=== PATIENT | male | born 1935 | race Caucasian/White ===

== ENCOUNTER 2016-10-22 12:04 | Outpatient (CLI) | payer MEDICARE, OTHER | END 2016-10-22 12:05 | disposition critical access hospital (66) | LOC: EMS 12:04 | PROVIDERS: ATTEND Surgery | DX: R55 Syncope and collapse (principal) | CPT/HCPCS: A0425; A0427 ==

== ENCOUNTER 2016-10-22 12:25 | Observation (INO) | payer MEDICARE, OTHER ==
[2016-10-22 13:02] LABS: BASOPHILS % (AUTO) 0.5 %; EOSINOPHILS % (AUTO) 0.2 %; HCT - HEMATOCRIT 37.1 % (42.0-52.0); HGB - HEMOGLOBIN 12.6 g/dL (14.0-18.0); LYMPHOCYTES # (AUTO) 0.6 10^3/uL (1.5-3.5); MEAN CORPUSCULAR HEMOGLOBIN 31.7 pg (27.0-31.0); MEAN CORPUSCULAR VOLUME 93.2 fL (80.0-94.0); MEAN PLATELET VOLUME 7.1 fL (7.4-11.4); MONOCYTES # (AUTO) 0.6 10^3/uL (0.0-1.0); MONOCYTES % (AUTO) 9.6 %; NEUTROPHILS # (AUTO) 4.8 10^3/uL (1.5-6.6); NEUTROPHILS % (AUTO) 79.7 %; RED BLOOD COUNT 3.99 10^6/uL (4.70-6.10); RED CELL DISTRIBUTION WIDTH 13.6 % (12.0-15.0); UNCORRECTED WHITE BLOOD COUNT 5.9 x10^3/uL; WHITE BLOOD COUNT 5.9 x10^3/uL (4.8-10.8)
--- NOTE | 2016-10-22 13:03 | ED Physician Documentation ---
PD HPI SYNCOPE - Stated complaint Stated Complaint: SYNCOPAL - Chief complaint Chief Complaint: Neuro - History obtained from History obtained from: Patient, Family - History of Present Illness Witnessed: Witnessed Timing - onset: Today Duration: Seconds Preceding symptoms: Vision changes, Diaphoresis, Light headed Associated symptoms: Diaphoresis Contributing factors: Decreased PO intake, Other (diarrhea for 4 days and increased blood sugars) Injury occurred: None Treatment [employer]: Fluids Similar symptoms before: Has not had sx before Recently seen: Not recently seen - Additional information Additional information: 80-year-old male from [place] who [facility] has been well this summer since June and about 4 days ago he developed some diarrhea several times per day with watery stool. His blood sugars have been running high as well. He usually runs about 100 and he has had numbers over 200 in the past 4 days. Today he went out to talk to his neighbor's when he came back into the house his noted him to be pale and diaphoretic and not acting appropriately. The patient is transported to the hospital by paramedics. Review of Systems Constitutional: reports: Fatigue, Sweats. denies: Fever, Chills, Myalgias Eyes: denies: Decreased vision Ears: denies: Ear pain Nose: denies: Rhinorrhea / runny nose, Congestion Throat: denies: Sore throat Cardiac: denies: Chest pain / pressure, Palpitations Respiratory: denies: Dyspnea, Cough GI: reports: Diarrhea. denies: Abdominal Pain, Nausea, Vomiting, Constipation : reports: Frequency. denies: Dysuria Skin: denies: Rash Musculoskeletal: denies: Neck pain, Back pain, Extremity pain Neurologic: reports: Generalized weakness. denies: Focal weakness, Numbness PD PAST MEDICAL HISTORY - Past Medical History Past Medical History: Yes Cardiovascular: [place] Endocrine/Autoimmune: Type 2 diabetes - Past Surgical History Past Surgical History: Yes General: Appendectomy Cardiovascular: CABG HEENT: Tonsil/Adenoidectomy - Present Medications Home Medications: Ambulatory Orders Medication Instructions Recorded Confirmed Aspirin 1 tab PO DAILY 09/23/14 10/22/16 Carvedilol 1 tab PO DAILY 09/23/14 10/22/16 Insulin Glargine,Hum.rec.anlog 15 unit DAILY 09/23/14 09/23/14 [Lantus] Lisinopril 1 tab DAILY 09/23/14 10/22/16 Simvastatin 0.5 tab PO QPM 09/23/14 10/22/16 glipiZIDE [Glucotrol] 5 mg PO DAILY 09/23/14 10/22/16 metFORMIN [Glucophage] 1,000 mg PO BID 09/23/14 10/22/16 Nitroglycerin 10/22/16 - Allergies Allergies/Adverse Reactions: Allergies Allergy/AdvReac Type Severity Reaction Status Date / Time No Known Drug Allergies Allergy Verified 09/23/14 09:54 - Social History Does the pt smoke?: No Smoking Status: Never smoker Does the pt drink ETOH?: Yes Does the pt have substance abuse?: No PD ED PE NORMAL - Vitals Vital signs reviewed: Yes (Normal) - General General: Alert and oriented X 3, No acute distress, Well developed/nourished - HEENT HEENT: Atraumatic, PERRL, EOMI - Neck Neck: Supple, no meningeal sign, No bony TTP - Cardiac Cardiac: RRR, Other (2 out of 6 holosystolic murmur at the left sternal border without radiation into the axilla.) - Respiratory Respiratory: No respiratory distress, Clear bilaterally - Abdomen Abdomen: Soft, Non tender - Back Back: No CVA TTP, No spinal TTP - Derm Derm: Normal color, Warm and dry, No rash - Extremities Extremities: No deformity, No edema - Neuro Neuro: Alert and oriented X 3, irrigation equipment remover 2-12 intact, No motor deficit, No sensory deficit, Normal speech - Psych Psych: Normal mood, Normal affect Results - Vitals Vitals: Vital Signs - 24 hr 10/22/16 10/22/16 12:30 15:14 Temperature 36.8 C 36.7 C Heart Rate 67 71 Respiratory 16 15 Rate Blood Pressure 117/74 125/58 L O2 Saturation 96 96 Oxygen O2 Source Room air - EKG (time done) 1246 Rate: Rate (enter#) (60) Rhythm: NSR Intervals: Prolonged [place], RBBB Ischemia: Normal ST segments, Q waves Compare to prior EKG: Old EKG unavailable Computer interpretation: Agree with computer - Labs Labs: Laboratory Tests 10/22/16 10/22/16 10/22/16 12:54 12:54 12:54 WBC 5.9 RBC 3.99 L Hgb 12.6 L Hct 37.1 L MCV 93.2 MCH 31.7 H MCHC 34.0 RDW 13.6 Plt Count 129 L MPV 7.1 L Neut # 4.8 Lymph # 0.6 L [place] # 0.6 Eos # 0.0 Baso # 0.0 Absolute Nucleated RBC 0.00 Nucleated RBCs 0.0 Sodium 130 L Potassium 4.0 Chloride 101 Carbon Dioxide 22 Anion Gap 7.0 BUN 31 H Creatinine 1.5 H Estimated GFR (MDRD) 45 L Glucose 271 H Calcium 8.4 L Total Bilirubin 1.1 H AST 40 ALT 28 Alkaline Phosphatase 44 Troponin I 0.08 Total Protein 6.5 L Albumin 3.4 Globulin 3.1 Albumin/Globulin Ratio 1.1 Lipase 44 Urine Color Urine Clarity Urine pH Ur Specific [place] Urine Protein Urine Glucose (UA) Urine Ketones Urine Occult Blood Urine Nitrite Urine Bilirubin Urine Urobilinogen Ur Leukocyte Esterase Urine RBC Urine WBC Ur Squamous Epith Cells Amorphous Sediment Urine Bacteria Urine Casts Ur Microscopic Review Urine Culture Comments 10/22/16 10/22/16 15:03 15:15 WBC RBC Hgb Hct MCV MCH MCHC RDW Plt Count MPV Neut # Lymph # [place] # Eos # Baso # Absolute Nucleated RBC Nucleated RBCs Sodium Potassium Chloride Carbon Dioxide Anion Gap BUN Creatinine Estimated GFR (MDRD) Glucose Calcium Total Bilirubin AST ALT Alkaline Phosphatase Troponin I 0.09 Total Protein Albumin Globulin Albumin/Globulin Ratio Lipase Urine Color DARK YELLOW Urine Clarity HAZY Urine pH 6.0 Ur Specific [place] 1.025 Urine Protein 30 H Urine Glucose (UA) NEGATIVE Urine Ketones NEGATIVE Urine Occult Blood MODERATE H Urine Nitrite NEGATIVE Urine Bilirubin NEGATIVE Urine Urobilinogen 0.2 (NORMAL) Ur Leukocyte Esterase NEGATIVE Urine RBC 0-5 Urine WBC 0-3 Ur Squamous Epith Cells FEW Squamous Amorphous Sediment Rare Urine Bacteria Few Urine Casts 11-25 Hyaline Casts Ur Microscopic Review INDICATED Urine Culture Comments NOT INDICATED Procedures - IVC sono (time) 1300 Bedside IVC sono: IVC measures (cm) (0.83), Dehydration (after 500ml in) PD MEDICAL DECISION MAKING - ED course Complexity details: reviewed old records, reviewed results, re-evaluated patient , considered differential, d/w patient, d/w family ED course: 80-year-old diabetic male with a history of coronary artery disease has been sick for 4 days with diarrhea and he has had some elevated blood sugars. This morning he had a near syncopal episode and was found to be dehydrated on interrogation of the IVC. In addition on examination he does appear to have aortic stenosis. He does not have echo done in this state. Departure - Departure Disposition: ED Place in Observation Clinical Impression: Vasovagal near-syncope, Dizziness, Dehydration
[2016-10-22 13:15] LABS: ALBUMIN/GLOBULIN RATIO 1.1 (1.0-2.2); BILIRUBIN,TOTAL 1.1 mg/dL (0.2-1.0); CALCIUM 8.4 mg/dL (8.5-10.3); CREATININE 1.5 mg/dL (0.6-1.2); TOTAL PROTEIN 6.5 g/dL (6.7-8.2)
[2016-10-22 15:32] LABS: BILIRUBIN,URINE NEGATIVE (NEGATIVE)
[2016-10-22 15:36] LABS: UA w/ MICROSCOPIC CHARGE YES
[2016-10-22 16:14] LABS: UR CULTURE IF IND NOT INDICATED; WBC,URINE 0-3 /HPF (0-3)
[2016-10-22] MEDS ORDERED: SODIUM CHLORIDE FLUSH 0.9% 10 ML SYRINGE IVP PRN ×2 (16:32→17:15)
[2016-10-22] MEDS ORDERED: ACETAMINOPHEN 325 MG TABLET PO PRN ×2 (16:32→17:15)
[2016-10-22] MEDS ORDERED: ONDANSETRON 4 MG/2 ML VIAL IVP PRN ×2 (16:32→17:15)
[2016-10-22] MEDS ORDERED: oxyCODONE 5 MG TABLET PO PRN ×2 (16:32→17:15)
[2016-10-22] MEDS ORDERED: PROCHLORPERAZINE 10 MG/2 ML VIAL IVP PRN ×2 (16:32→17:15)
[2016-10-22] MEDS ORDERED: SODIUM CHLORIDE 0.9% 1,000 ML IV SCH (17:00)
[2016-10-22] MEDS ORDERED: INSULIN ASPART 300 UNIT/3 ML PEN SUBQ SCH (17:00)
[2016-10-22 17:11] LABS: HEMOGLOBIN A1C 0.83 g/dL
[2016-10-22] MEDS: INSULIN ASPART 300 UNIT/3 ML PEN SUBQ SCH ×2 (18:10→21:59)
--- NOTE | 2016-10-22 18:48 | HISTORY & PHYSICAL EXAMINATION ---
Chief Complaint - Chief Complaint Chief Complaint: Near syncope History of Present Illness - Admitted From Admitted From:: Emergency department - History Obtained From Records Reviewed: Yes History obtained from: Patient Exam Limitations: None - History of Present Illness HPI Comment/Other: Patient is a 80-year-old gentleman with a past medical history significant for hypertension, diabetes, hyperlipidemia and coronary artery disease status post CABG who presented to the emergency department with a complaint of presyncope. The patient states that he was in his normal state of health until about 4 days ago when he began developing diarrhea. He states he has been going to the bathroom 5-6 times a day with watery stools. He states he did not seek any medical help for the diarrhea as he states he has had diarrhea in the past but usually only lasts for about a day. He states that today the diarrhea was getting better as he has only had one episode over the course of the day. He denies any abdominal pain or cramping. He denies any nausea or vomiting. He denies any recent fevers or chills. He denies having had any sick contacts. He states the reason he was brought into the emergency department today is because his noticed that he had a presyncopal episode. The patient states that he was outside talking to his neighbor when he began feeling lightheaded so he came inside and sat down on the couch. The patient states that he did not have any chest pain, shortness of air or palpitations when he had this dizziness. He states that when he was sitting on the couch his called out to him but he did not answer. His states that he seemed as though he was pale and clammy. The patient did eventually start answering questions but the became concerned and called 911. The patient was brought into the emergency department by EMS. The patient otherwise denies any headaches, blurred vision, runny nose, sore throat, nasal congestion, cough, orthopnea, PND, increased lower extremity swelling, joint pains, muscle aches, recent unintentional weight loss, changes in his appetite, urinary urgency, frequency or dysuria, back pain, neck stiffness or any focal neurologic deficits. On presentation to the emergency department the patient was afebrile and his vital signs were all within normal limits. The patient underwent routine blood tests which revealed that he did have hyponatremia and what appeared to be acute kidney injury. This appear to reflect that the patient was dehydrated likely from the diarrhea. The patient did not have any leukocytosis. 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 The patient's initial troponin was 0.08 a repeat troponin was 0.09 but the patient denied any chest pain. On examination the emergency room physician found that the patient had a systolic murmur. The emergency room physician was concerned given this mild the abnormal troponin and murmur that the patient may have had a presyncopal episode secondary to aortic stenosis. The patient was placed in observation for further evaluation. Review of Systems - Other Findings Other Findings: A comprehensive review of systems was performed the pertinent positives and negatives are stated above in the HPI History - Past Medical History Cardiovascular: reports: [place] Endocrine/Autoimmune: reports: Type 2 diabetes Other Past Medical History: 1. Diabetes. 2. Hypertension. 3. Hyperlipidemia. 4. Coronary artery disease status post CABG - Past Surgical History General: reports: Appendectomy Cardiovascular: reports: CABG HEENT: reports: Tonsil/Adenoidectomy - Family & Social History Family History: Mother: Diabetes, Type 2, Father: Living arrangement: At home Living Situation: With spouse/s.o. Social History Notes: The patient is originally from [place] but he spent most of his life in [facility]. The patient lives with his and they have 4 children who are all grown. 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 He and his are retired and they live during the summer and would be [place] and the rest of the year in [place]. The patient has a primary care physician in [place] but [place]. The patient has never smoked he does drink alcohol once or twice a week he denies any illicit drug use - Substance History Use: Uses substance without health or social issues: NONE Abuse: Recurrent use of substance despite neg consequences: NONE Dependence: Experiences withdrawal or developed tolerances: NONE - POLST Patient has POLST: No POLST Status: Full Code Meds/Allgy - Home Medications Home Medications: Ambulatory Orders Medication Instructions Recorded Confirmed Aspirin 1 tab PO DAILY 09/23/14 10/22/16 Carvedilol 1 tab PO DAILY 09/23/14 10/22/16 Insulin Glargine,Hum.rec.anlog 15 unit DAILY 09/23/14 09/23/14 [Lantus] Lisinopril 1 tab DAILY 09/23/14 10/22/16 Simvastatin 0.5 tab PO QPM 09/23/14 10/22/16 glipiZIDE [Glucotrol] 5 mg PO DAILY 09/23/14 10/22/16 metFORMIN [Glucophage] 1,000 mg PO BID 09/23/14 10/22/16 Nitroglycerin 10/22/16 - Allergies Allergies/Adverse Reactions: Allergies Allergy/AdvReac Type Severity Reaction Status Date / Time No Known Drug Allergies Allergy Verified 09/23/14 09:54 Exam - Vital Signs Vital Signs: Vital Signs x48h Temp Pulse Resp BP Pulse Ox 10/22/16 17:35 37.4 C 62 18 115/48 L 93 - Physical Exam General Appearance: positive: No acute distress, Alert Eyes Bilateral: positive: Normal inspection, PERRL, EOMI, No lid inflammation, Conjunctivae nml, No scleral icterus ENT: positive: ENT inspection nml, Pharynx nml, Dry mucous membranes. negative : Purulent nasal drainage, Pharyngeal erythema, Oral lesions Neck: positive: Nml inspection, Thyroid nml, No JVD, Trachea midline. negative : Thyromegaly, Lymphadenopathy (R), Lymphadenopathy (L), Carotid bruit, Tracheal deviation Respiratory: positive: Chest non-tender, No respiratory distress, Breath sounds nml. negative: Wheezes, Rales, Rhonchi Cardiovascular: positive: Regular rate & rhythm, No gallop, Systolic murmur Peripheral Pulses: positive: 2+ Abdomen: positive: Non-tender, No organomegaly, Nml bowel sounds, No distention. negative: Guarding, Rebound, Hepatomegaly Back: positive: Nml inspection. negative: CVA tenderness (R), CVA tenderness (L ) Skin: positive: Color nml, No rash, Warm. negative: Cyanosis, Pallor Extremities: positive: Non-tender, Full ROM, Nml appearance, No pedal edema Neurologic/Psychiatric: positive: Oriented x3, CN's nml (2-12), Motor nml, Sensation nml, Mood/affect nml Conclusion/Plan - Problem List (1) Near syncope Conclusion/Plan: Patient had a near syncopal episode at home witnessed by his but did not completely lose consciousness. Likely this was a vasovagal syncope from his dehydration due to diarrhea for 4 days. The patient was found to have a murmur on examination and does have a cardiac history with a initial troponin of 0.08 therefore patient is being placed in observation for further workup. Plan: Echocardiogram Telemetry monitoring IV hydration (2) ALEJANDRA (acute kidney injury) Conclusion/Plan: Patient has a creatinine of 1.5 on presentation. We do not have a baseline creatinine on the patient but given his elevated BUN and diarrhea for the last 4 days with presentation of with dehydration we expect that this is likely an acute kidney injury. This likely prerenal azotemia due to dehydration from diarrhea. Plan: Give IV fluids Monitor creatinine Avoid nephrotoxic agents (3) Dehydration Conclusion/Plan: Patient appears to be dehydrated on presentation with elevated creatinine and BUN. He also has dry mucous membranes. An ultrasound of his inferior vena cava shows dehydration. Plan: Give IV fluids Monitor electrolytes (4) Diarrhea Conclusion/Plan: Patient has had diarrhea for the last 4 days and presents with dehydration acute kidney injury and near syncope. The patient diarrhea is likely viral as he did not have any leukocytosis, fevers or bloody diarrhea. Diarrhea appears to be resolving as he is improved today with less episodes of diarrhea. Plan: Monitor diarrhea Give IV fluids Replace electrolytes Qualifiers: Diarrhea type: unspecified type Qualified Code(s): R19.7 - Diarrhea, unspecified (5) Murmur Conclusion/Plan: The patient does appear to have a murmur on physical examination. This appears to be a systolic murmur. Given the patient's near syncope and mildly abnormal troponin the patient was placed in observation for further workup. Plan: Echocardiogram (6) Diabetes Conclusion/Plan: Patient's hemoglobin A1c on presentation is 7.8 he was hyperglycemic on presentation. The hypoglycemia is likely contributing to the patient's dehydration and is likely exacerbated by his viral diarrhea. Plan: Place on diabetic diet Give IV fluids Placed on sliding scale insulin and home dose of Lantus Hold oral diabetic medications. Qualifiers: Diabetes mellitus type: type 2 (7) Hypertension Conclusion/Plan: Patient's blood pressure is well controlled on presentation Continue home blood pressure medications Monitor blood pressure Qualifiers: Hypertension type: essential hypertension Qualified Code(s): I10 - Essential (primary) hypertension (8) Hyperlipidemia Conclusion/Plan: Continue home dose of statin (9) Prophylactic use of low molecular weight heparin for venous thromboembolism (VTE) Conclusion/Plan: Placed on Lovenox while hospitalized. - Lab Results Lab results reviewed: Yes Fish Bones: 10/22/16 12:54 10/22/16 12:54 Other Lab Results: Laboratory Results WBC 5.9 x10^3/uL (4.8-10.8) 10/22/16 12:54 RBC 3.99 10^6/uL (4.70-6.10) L 10/22/16 12:54 Hgb 12.6 g/dL (14.0-18.0) L 10/22/16 12:54 Hct 37.1 % (42.0-52.0) L 10/22/16 12:54 MCV 93.2 fL (80.0-94.0) 10/22/16 12:54 MCH 31.7 pg (27.0-31.0) H 10/22/16 12:54 MCHC 34.0 g/dL (32.0-36.0) 10/22/16 12:54 RDW 13.6 % (12.0-15.0) 10/22/16 12:54 Plt Count 129 10^3/uL (130-450) L 10/22/16 12:54 MPV 7.1 fL (7.4-11.4) L 10/22/16 12:54 Neut # 4.8 10^3/uL (1.5-6.6) 10/22/16 12:54 Lymph # 0.6 10^3/uL (1.5-3.5) L 10/22/16 12:54 [place] # 0.6 10^3/uL (0.0-1.0) 10/22/16 12:54 Eos # 0.0 10^3/uL (0.0-0.7) 10/22/16 12:54 Baso # 0.0 10^3/uL (0.0-0.1) 10/22/16 12:54 Absolute Nucleated RBC 0.00 x10^3/uL 10/22/16 12:54 Nucleated RBCs 0.0 /100WBC 10/22/16 12:54 Sodium 130 mmol/L (135-145) L 10/22/16 12:54 Potassium 4.0 mmol/L (3.5-5.0) 10/22/16 12:54 Chloride 101 mmol/L (101-111) 10/22/16 12:54 Carbon Dioxide 22 mmol/L (21-32) 10/22/16 12:54 Anion Gap 7.0 (6-13) 10/22/16 12:54 BUN 31 mg/dL (6-20) H 10/22/16 12:54 Creatinine 1.5 mg/dL (0.6-1.2) H 10/22/16 12:54 Estimated GFR (MDRD) 45 (>89) L 10/22/16 12:54 Glucose 271 mg/dL (70-100) H 10/22/16 12:54 Glycated Hemoglobin 7.8 % (4.6-6.2) H 10/22/16 12:54 Estim Average Glucose 177 (70-100) H 10/22/16 12:54 Calcium 8.4 mg/dL (8.5-10.3) L 10/22/16 12:54 Total Bilirubin 1.1 mg/dL (0.2-1.0) H 10/22/16 12:54 AST 40 IU/L (10-42) 10/22/16 12:54 ALT 28 IU/L (10-60) 10/22/16 12:54 Alkaline Phosphatase 44 IU/L (42-121) 10/22/16 12:54 Troponin I 0.09 ng/mL (<0.49) 10/22/16 15:15 Total Protein 6.5 g/dL (6.7-8.2) L 10/22/16 12:54 Albumin 3.4 g/dL (3.2-5.5) 10/22/16 12:54 Globulin 3.1 g/dL (2.1-4.2) 10/22/16 12:54 Albumin/Globulin Ratio 1.1 (1.0-2.2) 10/22/16 12:54 Lipase 44 U/L (22-51) 10/22/16 12:54 Urine Color DARK YELLOW 10/22/16 15:03 Urine Clarity HAZY (CLEAR) 10/22/16 15:03 Urine pH 6.0 PH (5.0-7.5) 10/22/16 15:03 Ur Specific [employer] 1.025 (1.002-1.030) 10/22/16 15:03 Urine Protein 30 mg/dL (NEGATIVE) H 10/22/16 15:03 Urine Glucose (UA) NEGATIVE mg/dL (NEGATIVE) 10/22/16 15:03 Urine Ketones NEGATIVE mg/dL (NEGATIVE) 10/22/16 15:03 Urine Occult Blood MODERATE (NEGATIVE) H 10/22/16 15:03 Urine Nitrite NEGATIVE (NEGATIVE) 10/22/16 15:03 Urine Bilirubin NEGATIVE (NEGATIVE) 10/22/16 15:03 Urine Urobilinogen 0.2 (NORMAL) E.U./dL (NORMAL) 10/22/16 15:03 Ur Leukocyte Esterase NEGATIVE (NEGATIVE) 10/22/16 15:03 Urine RBC 0-5 /HPF (0-5) 10/22/16 15:03 Urine WBC 0-3 /HPF (0-3) 10/22/16 15:03 Ur Squamous Epith Cells FEW Squamous (<= Few) 10/22/16 15:03 Amorphous Sediment Rare /LPF 10/22/16 15:03 Urine Bacteria Few /HPF (None Seen) 10/22/16 15:03 Urine Casts 26-50Course Granular /[id number] Hyaline Casts /LPF 10/22/16 15:03 Urine Casts 26-50Course Granular /[id number] Hyaline Casts /LPF 10/22/16 15:03 Ur Microscopic Review INDICATED 10/22/16 15:03 Urine Culture Comments NOT INDICATED 10/22/16 15:03 - EKG Results EKG Interpreted Independently: Yes EKG Findings: Inferior Q waves, right bundle branch block, sinus rhythm. Issues/Core Measures - Anticipated LOS Anticipated Stay Length: Less than 2 midnights - DVT/VTE - Prophylaxis VTE/DVT Prophylaxis med ordered at admit?: Yes
[2016-10-22] MEDS ORDERED: SIMVASTATIN PO SCH (21:00)
[2016-10-22] MEDS ORDERED: INSULIN GLARGINE 300 UNIT/3 ML PEN SUBQ SCH ×2 (21:00)
[2016-10-22] MEDS: SODIUM CHLORIDE 0.9% 1,000 ML IV SCH (21:59)
[2016-10-22] MEDS: SODIUM CHLORIDE FLUSH 0.9% 10 ML SYRINGE IVP SCH (22:00)
[2016-10-22] MEDS ORDERED: SODIUM CHLORIDE FLUSH 0.9% 10 ML SYRINGE IVP SCH (22:00)
[2016-10-23] MEDS ORDERED: CALCIUM CARBONATE CHEW 500 MG TABLET ONE (02:50)
[2016-10-23 05:51] LABS: BASOPHILS % (AUTO) 0.6 %; EOSINOPHILS % (AUTO) 0.3 %; HCT - HEMATOCRIT 33.5 % (42.0-52.0); HGB - HEMOGLOBIN 11.7 g/dL (14.0-18.0); LYMPHOCYTES # (AUTO) 0.8 10^3/uL (1.5-3.5); LYMPHOCYTES % (AUTO) 19.8 %; MEAN CORPUSCULAR HEMOGLOBIN 32.2 pg (27.0-31.0); MEAN CORPUSCULAR VOLUME 92.1 fL (80.0-94.0); MEAN PLATELET VOLUME 7.4 fL (7.4-11.4); MONOCYTES # (AUTO) 0.5 10^3/uL (0.0-1.0); MONOCYTES % (AUTO) 13.1 %; NEUTROPHILS # (AUTO) 2.7 10^3/uL (1.5-6.6); NEUTROPHILS % (AUTO) 66.2 %; NUCLEATED RED BLOOD CELLS AUTO 0.1 /100WBC; RED BLOOD COUNT 3.64 10^6/uL (4.70-6.10); RED CELL DISTRIBUTION WIDTH 13.7 % (12.0-15.0); UNCORRECTED WHITE BLOOD COUNT 4.1 x10^3/uL; WHITE BLOOD COUNT 4.1 x10^3/uL (4.8-10.8)
[2016-10-23 06:02] LABS: ALBUMIN/GLOBULIN RATIO 1.1 (1.0-2.2); BILIRUBIN,TOTAL 0.7 mg/dL (0.2-1.0); BUN - BLOOD UREA NITROGEN 28 mg/dL (6-20); CALCIUM 8.4 mg/dL (8.5-10.3); CARBON DIOXIDE - CO2 23 mmol/L (21-32); CHLORIDE 102 mmol/L (101-111); CREATININE 1.3 mg/dL (0.6-1.2); GFR - MDRD 53 (>89); GLUCOSE 186 mg/dL (70-100); MAGNESIUM 1.8 mg/dL (1.7-2.8); PHOSPHORUS 2.5 mg/dL (2.5-4.6); SODIUM 133 mmol/L (135-145); TOTAL PROTEIN 6.1 g/dL (6.7-8.2)
[2016-10-23] MEDS: SODIUM CHLORIDE 0.9% 1,000 ML IV SCH (06:04)
[2016-10-23] MEDS: SODIUM CHLORIDE FLUSH 0.9% 10 ML SYRINGE IVP SCH (06:18)
[2016-10-23] MEDS: INSULIN ASPART 300 UNIT/3 ML PEN SUBQ SCH ×2 (08:28→11:30)
[2016-10-23] MEDS ORDERED: ENOXAPARIN 40 MG/0.4 ML SYRINGE SUBQ SCH ×2 (09:00)
[2016-10-23] MEDS ORDERED: CARVEDILOL 3.125 MG TABLET PO SCH (09:00)
[2016-10-23] MEDS ORDERED: ASPIRIN 325 MG TABLET PO SCH (09:00)
[2016-10-23] MEDS ORDERED: FAMOTIDINE 20 MG TABLET PO SCH ×2 (09:00)
[2016-10-23] MEDS ORDERED: POLYETHYLENE GLYCOL 3350 17 GM PACKET PO SCH ×2 (09:00)
[2016-10-23] MEDS ORDERED: CARVEDILOL PO SCH (09:00)
[2016-10-23 13:03] VITALS: BP 132/48
--- NOTE | 2016-10-23 13:22 | Discharge Plan ---
Discharge Plan Disposition: 01 Home, Self Care Condition: Good Diet: Diabetic Activity Restrictions: No Restrictions Shower Restrictions: No Driving Restrictions: No Weight Bearing: Full Weight Additional Instructions or Follow Up instructions: You presented to the emergency department due to a near syncopal episode. We believe that this episode occurred secondary to you being dehydrated from diarrhea. You were given IV fluids while in the emergency department and during hospitalization. You now appear to be well hydrated your kidney function has improved since being admitted. You were found to have moderate aortic stenosis on your echocardiogram which means that your aortic valve of your heart is tight. At this point there is no acute intervention that needs to be done for this but it should be followed up by her primary care physician in the future. I suggest that you continue to hydrate herself but it does appear that your diarrhea is improving. No Smoking: If you smoke, Please STOP! Call for help.
--- NOTE | 2016-10-23 13:28 | DISCHARGE SUMMARY ---
Discharge Summary Admit Date: 10/22/16 Discharge Date: 10/23/16 Discharging Provider: Stoney Awan MD Primary Care Provider: Key Hawley MD Code Status: Attempt Resuscitation Condition at Discharge: Good Discharge Disposition: 01 Home, Self Care - DIAGNOSES Admission Diagnoses: 1. Near syncope 2. Acute kidney injury 3. Dehydration 4. Diarrhea 5. Murmur 6. Diabetes 7. Hypertension 8. Hyperlipidemia 9. DVT prophylaxis Discharge Diagnoses with Status of Each Condition: 1. Near syncope: Resolved 2. Acute kidney injury: Resolved 3. Dehydration: Resolved 4. Diarrhea: Improving 5. Mild to moderate aortic stenosis: Stable 6. Diabetes: Stable 7. Hypertension: Stable 8. Hyperlipidemia: Stable 9. DVT prophylaxis - HPI History of Present Illness: Patient is a 80-year-old gentleman with a past medical history significant for hypertension, diabetes, hyperlipidemia and coronary artery disease status post CABG who presented to the emergency department with a complaint of presyncope. The patient states that he was in his normal state of health until about 4 days ago when he began developing diarrhea. He states he has been going to the bathroom 5-6 times a day with watery stools. He states he did not seek any medical help for the diarrhea as he states he has had diarrhea in the past but usually only lasts for about a day. He states that today the diarrhea was getting better as he has only had one episode over the course of the day. He denies any abdominal pain or cramping. He denies any nausea or vomiting. He denies any recent fevers or chills. He denies having had any sick contacts. He states the reason he was brought into the emergency department today is because his noticed that he had a presyncopal episode. The patient states that he was outside talking to his neighbor when he began feeling lightheaded so he came inside and sat down on the couch. The patient states that he did not have any chest pain, shortness of air or palpitations when he had this dizziness. He states that when he was sitting on the couch his called out to him but he did not answer. His states that he seemed as though he was pale and clammy. The patient did eventually start answering questions but the became concerned and called 911. The patient was brought into the emergency department by EMS. The patient otherwise denies any headaches, blurred vision, runny nose, sore throat, nasal congestion, cough, orthopnea, PND, increased lower extremity swelling, joint pains, muscle aches, recent unintentional weight loss, changes in his appetite, urinary urgency, frequency or dysuria, back pain, neck stiffness or any focal neurologic deficits. On presentation to the emergency department the patient was afebrile and his vital signs were all within normal limits. The patient underwent routine blood tests which revealed that he did have hyponatremia and what appeared to be acute kidney injury. This appear to reflect that the patient was dehydrated likely from the diarrhea. The patient did not have any leukocytosis. 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 The patient's initial troponin was 0.08 a repeat troponin was 0.09 but the patient denied any chest pain. On examination the emergency room physician found that the patient had a systolic murmur. The emergency room physician was concerned given this mild the abnormal troponin and murmur that the patient may have had a presyncopal episode secondary to aortic stenosis. The patient was placed in observation for further evaluation. - HOSPITAL COURSE Hospital Course: The patient was monitored closely overnight in observation. He did not have any events on telemetry. The patient did have a mild fever of 38.2 and some loose stools but he stated that the frequency of his loose stools was decreasing and stools were becoming more formed. The patient's vital signs otherwise remained normal during the hospitalization. The patient's creatinine improved from 1.5-1.3 with IV hydration. The patient was eating and drinking well. The patient did have serial troponins and his troponin peaked at 0.09 and was trending down on repeat troponins. The patient underwent an echocardiogram which showed that he had a normal ejection fraction with moderate aortic stenosis. The patient's near syncopal episode was thought to likely be due to dehydration from his diarrhea and unlikely to be related to his aortic stenosis. The patient was discharged home in stable condition and will follow up with his primary care physician once he returns back to [place]. - ALLERGIES Allergies/Adverse Reactions: Allergies Allergy/AdvReac Type Severity Reaction Status Date / Time No Known Drug Allergies Allergy Verified 09/23/14 09:54 - MEDICATIONS Home Medications: Ambulatory Orders Medication Instructions Recorded Confirmed Aspirin 325 mg PO DAILY 09/23/14 10/23/16 Carvedilol 6.25 tab PO BID 09/23/14 10/23/16 Insulin Glargine,Hum.rec.anlog 15 unit SQ DAILY 09/23/14 10/23/16 [Lantus] Lisinopril 30 mg PO DAILY 09/23/14 10/23/16 Simvastatin 10 mg PO QPM 09/23/14 10/23/16 glipiZIDE [Glucotrol] 5 mg PO DAILY 09/23/14 10/22/16 metFORMIN [Glucophage] 1,000 mg PO BID 09/23/14 10/22/16 Nitroglycerin 0.4 mg SL PRN PRN 10/22/16 10/23/16 - PHYSICAL EXAM AT DISCHARGE General Appearance: positive: No acute distress, Alert Eyes Bilateral: positive: Normal inspection, PERRL, EOMI, No lid inflammation, Conjunctivae nml, No scleral icterus ENT: positive: ENT inspection nml, Pharynx nml, No signs of dehydration. negative: Purulent nasal drainage, Pharyngeal erythema, Oral lesions Neck: positive: Nml inspection, Thyroid nml, No JVD, Trachea midline. negative : Thyromegaly, Lymphadenopathy (R), Lymphadenopathy (L), Carotid bruit, Tracheal deviation Respiratory: positive: Chest non-tender, No respiratory distress, Breath sounds nml. negative: Wheezes, Rales, Rhonchi Cardiovascular: positive: Regular rate & rhythm, No gallop, Systolic murmur. negative: Friction rub, Crepitus Peripheral Pulses: positive: 2+ Abdomen: positive: Non-tender, No organomegaly, Nml bowel sounds, No distention. negative: Guarding, Rebound, Hepatomegaly Back: positive: Nml inspection. negative: CVA tenderness (R), CVA tenderness (L ) Skin: positive: Color nml, No rash, Warm. negative: Cyanosis, Pallor Extremities: positive: Non-tender, Full ROM, Nml appearance, No pedal edema Neurologic/Psychiatric: positive: Oriented x3, CN's nml (2-12), Motor nml, Sensation nml, Mood/affect nml - LABS Result Diagrams: 10/23/16 05:36 10/23/16 05:36 Other Lab Results: Laboratory Results WBC 4.1 x10^3/uL (4.8-10.8) L 10/23/16 05:36 RBC 3.64 10^6/uL (4.70-6.10) L 10/23/16 05:36 Hgb 11.7 g/dL (14.0-18.0) L 10/23/16 05:36 Hct 33.5 % (42.0-52.0) L 10/23/16 05:36 MCV 92.1 fL (80.0-94.0) 10/23/16 05:36 MCH 32.2 pg (27.0-31.0) H 10/23/16 05:36 MCHC 35.0 g/dL (32.0-36.0) 10/23/16 05:36 RDW 13.7 % (12.0-15.0) 10/23/16 05:36 Plt Count 124 10^3/uL (130-450) L 10/23/16 05:36 MPV 7.4 fL (7.4-11.4) 10/23/16 05:36 Neut # 2.7 10^3/uL (1.5-6.6) 10/23/16 05:36 Lymph # 0.8 10^3/uL (1.5-3.5) L 10/23/16 05:36 Cobb # 0.5 10^3/uL (0.0-1.0) 10/23/16 05:36 Eos # 0.0 10^3/uL (0.0-0.7) 10/23/16 05:36 Baso # 0.0 10^3/uL (0.0-0.1) 10/23/16 05:36 Absolute Nucleated RBC 0.00 x10^3/uL 10/23/16 05:36 Nucleated RBCs 0.1 /100WBC 10/23/16 05:36 Sodium 133 mmol/L (135-145) L 10/23/16 05:36 Potassium 4.0 mmol/L (3.5-5.0) 10/23/16 05:36 Chloride 102 mmol/L (101-111) 10/23/16 05:36 Carbon Dioxide 23 mmol/L (21-32) 10/23/16 05:36 Anion Gap 8.0 (6-13) 10/23/16 05:36 BUN 28 mg/dL (6-20) H 10/23/16 05:36 Creatinine 1.3 mg/dL (0.6-1.2) H 10/23/16 05:36 Estimated GFR (MDRD) 53 (>89) L 10/23/16 05:36 Glucose 186 mg/dL (70-100) H 10/23/16 05:36 POC Whole Bld Glucose 240 mg/dL (70 - 100) H 10/23/16 11:26 Glycated Hemoglobin 7.8 % (4.6-6.2) H 10/22/16 12:54 Estim Average Glucose 177 (70-100) H 10/22/16 12:54 Calcium 8.4 mg/dL (8.5-10.3) L 10/23/16 05:36 Ionized Calcium NO 10/23/16 05:36 Phosphorus 2.5 mg/dL (2.5-4.6) 10/23/16 05:36 Magnesium 1.8 mg/dL (1.7-2.8) 10/23/16 05:36 Total Bilirubin 0.7 mg/dL (0.2-1.0) 10/23/16 05:36 AST 38 IU/L (10-42) 10/23/16 05:36 ALT 29 IU/L (10-60) 10/23/16 05:36 Alkaline Phosphatase 39 IU/L (42-121) L 10/23/16 05:36 Troponin I 0.08 ng/mL (<0.49) 10/23/16 05:36 Total Protein 6.1 g/dL (6.7-8.2) L 10/23/16 05:36 Albumin 3.2 g/dL (3.2-5.5) 10/23/16 05:36 Globulin 2.9 g/dL (2.1-4.2) 10/23/16 05:36 Albumin/Globulin Ratio 1.1 (1.0-2.2) 10/23/16 05:36 Lipase 44 U/L (22-51) 10/22/16 12:54 Urine Color DARK YELLOW 10/22/16 15:03 Urine Clarity HAZY (CLEAR) 10/22/16 15:03 Urine pH 6.0 PH (5.0-7.5) 10/22/16 15:03 Ur Specific [place] 1.025 (1.002-1.030) 10/22/16 15:03 Urine Protein 30 mg/dL (NEGATIVE) H 10/22/16 15:03 Urine Glucose (UA) NEGATIVE mg/dL (NEGATIVE) 10/22/16 15:03 Urine Ketones NEGATIVE mg/dL (NEGATIVE) 10/22/16 15:03 Urine Occult Blood MODERATE (NEGATIVE) H 10/22/16 15:03 Urine Nitrite NEGATIVE (NEGATIVE) 10/22/16 15:03 Urine Bilirubin NEGATIVE (NEGATIVE) 10/22/16 15:03 Urine Urobilinogen 0.2 (NORMAL) E.U./dL (NORMAL) 10/22/16 15:03 Ur Leukocyte Esterase NEGATIVE (NEGATIVE) 10/22/16 15:03 Urine RBC 0-5 /HPF (0-5) 10/22/16 15:03 Urine WBC 0-3 /HPF (0-3) 10/22/16 15:03 Ur Squamous Epith Cells FEW Squamous (<= Few) 10/22/16 15:03 Amorphous Sediment Rare /LPF 10/22/16 15:03 Urine Bacteria Few /HPF (None Seen) 10/22/16 15:03 Urine Casts 26-50Course Granular /[id number] Hyaline Casts /LPF 10/22/16 15:03 Urine Casts 26-50Course Granular /[id number] Hyaline Casts /LPF 10/22/16 15:03 Ur Microscopic Review INDICATED 10/22/16 15:03 Urine Culture Comments NOT INDICATED 10/22/16 15:03 - DIAGNOSTIC IMAGING Diagnostic Imaging Results: Final report reviewed Diagnostic Imaging Results Comments: Echocardiogram: The official read was not yet back but preliminary result showed a normal ejection fraction and mild to moderate aortic stenosis. - FOLLOW UP Follow Up: Patient was told to keep well-hydrated until his diarrhea completely resolves. He was told to follow-up with his primary care physician once he returns to [place]. - TIME SPENT Time Spent in Discharge (Minutes): 35
[2016-10-23] MEDS ORDERED: ATORVASTATIN 10 MG TABLET PO SCH (21:00)
== END 2016-10-23 15:00 | disposition home or self-care (01) ==
LOC: EDUNIT# → ED 12:25 → OBS 17:14
PROVIDERS: ADMIT Internal Medicine; ATTEND Internal Medicine
DX: R55 Syncope and collapse (principal); N17.9 Acute kidney failure, unspecified; E86.0 Dehydration; R19.7 Diarrhea, unspecified; I35.0 Nonrheumatic aortic (valve) stenosis; E11.65 Type 2 diabetes mellitus with hyperglycemia; I10 Essential (primary) hypertension; E78.5 Hyperlipidemia, unspecified; E87.1 Hypo-osmolality and hyponatremia; I25.10 Atherosclerotic heart disease of native coronary artery without angina pectoris; Z95.1 Presence of aortocoronary bypass graft; Z79.82 Long term (current) use of aspirin; Z79.4 Long term (current) use of insulin; Z79.899 Other long term (current) drug therapy
CPT/HCPCS: 36415; 80053; 81001; 83036; 83690; 83735; 84100; 84484; 85025; 93005; 93306; 96372; 99284; 99285; A9270; G0378; J1650; J1815; 81003; 87086